=== PATIENT | female | born 2005 | race Caucasian/White ===

== ENCOUNTER 2023-10-19 06:30 | Inpatient (IN) ==
[2023-10-19] MEDS ORDERED: PITOCIN ONE ×2 (06:41→16:23)
[2023-10-19] MEDS ORDERED: D5 1/2 NS 1,000 ML 1,000 ML IV ONE (06:42)
[2023-10-19] MEDS ORDERED: NS 100 ML IV 100 ML ONE ×3 (06:42→16:05)
[2023-10-19] MEDS ORDERED: STADOL INJ IVP PRN (07:03)
[2023-10-19] MEDS ORDERED: AMPICILLIN IV SCH (07:03)
[2023-10-19] MEDS ORDERED: REGLAN INJ 10 MG VIAL IVP PRN ×3 (07:03→18:31)
[2023-10-19] MEDS ORDERED: PITOCIN IVP ONE (07:03)
[2023-10-19] MEDS ORDERED: NS IV SCH (07:03)
[2023-10-19] MEDS: D5 1/2 NS 1,000 ML 1,000 ML IV SCH (07:05)
[2023-10-19] MEDS: AMPICILLIN VIAL 2 GRAM ONE (07:12)
--- NOTE | 2023-10-19 07:27 | DR.OB ---
OB QUICK NOTE Assessment/Plan (1) Active labor at term: Assessment/Plan: L&D 10/19/23 at 7:20am Ampicillin S-No complaint. O-Afebrile,VSS CMC=231 with good LTV, +accel, no decel. CTX=occasional, mild CVX=2cm/50%/-1/VTX AROM with clear fluid. IUPC and FSE placed. A-IUP at 39 0/7 weeks for induction +GBS GERD P-Begin pitocin induction ABX in labor for +GBS Anticipate
[2023-10-19] MEDS: OXYTOCIN 20 UNIT/1,000 ML-NS 20 UNIT/1,000 ML PLAST..BAG IV PRN (07:44)
[2023-10-19] MEDS ORDERED: NUBAIN INJ 200 MG VIAL MULTIDOSE ONE (09:52)
[2023-10-19] MEDS: NUBAIN INJ 20 MG AMP IVP PRN (09:55)
[2023-10-19] MEDS ORDERED: AMPICILLIN VIAL 1 GRAM ONE ×2 (11:23→15:03)
[2023-10-19] MEDS: AMPICILLIN VIAL 1 GRAM 1 G in NS 50 ML IV 50 ML IV SCH (11:26)
--- NOTE | 2023-10-19 12:02 | DR.OB ---
OB QUICK NOTE Assessment/Plan (1) Active labor at term: Assessment/Plan: L&D 10/19/23 at 11:55am Pitocin=18mu/min. Ampicillin S-No complaint except CTX pain. O-Afebrile,VSS OWX=273 with good LTV, +accel, no decel. CTX=q 1 1/2 to 2 min., about 45-55mmHg CVX=3-4cm/50%/-2 A-IUP at 39 0/7 weeks for induction +GBS GERD P-Cont. pitocin induction / ABX in labor Anticipate
[2023-10-19] MEDS: LR 1,000 ML IV 1,000 ML IV ONE ×3 (12:40→17:18)
[2023-10-19] MEDS ORDERED: XYLOCAINE 1 % (PLAIN) ONE (13:11)
[2023-10-19] MEDS: FENTANYL VIAL INJ 100 mcg ONE ×3 (13:51→17:01)
[2023-10-19] MEDS: NAROPIN EPIDURAL 0.2% 100 ML ONE (13:56)
[2023-10-19] MEDS: NS 100 ML IV 100 ML ONE (15:30)
[2023-10-19] MEDS: ZOFRAN INJ 4 MG VIAL ONE ×2 (15:44→16:13)
[2023-10-19] MEDS: ZOFRAN INJ 4 MG VIAL IVP PRN (15:47)
[2023-10-19] MEDS: ANCEF VIAL 1 GRAM ONE (16:05)
--- NOTE | 2023-10-19 16:10 | DR.OB ---
OB QUICK NOTE Assessment/Plan (1) Active labor at term: Assessment/Plan: L&D 10/19/23 at 4:00pm Pitocin=20mu/min. Ampicillin S-No complaint. s/p epidural. O-Afebrile,VSS TZP=843 with minimal variability, occasional late variables and deep variables. CTX=q 1 1/2 to 2 min., about 50-55mmHg CVX=4cm/75%/-1/VTX with caput forming (no change in dilation in over 4 hours) A-IUP at 39 0/7 weeks with failure to dilate P-To C/S
[2023-10-19] MEDS: REGLAN INJ 10 MG VIAL ONE (16:13)
[2023-10-19] MEDS: PEPCID 20 MG VIAL ONE (16:13)
[2023-10-19] MEDS: NOZIN NASAL SANITIZER TP ONE (16:13)
[2023-10-19] MEDS ORDERED: LIDOCAINE 2%-EPI 1:200,000 ONE (16:15)
[2023-10-19] MEDS: DIPRIVAN VIAL 20 ML ONE (16:23)
[2023-10-19] MEDS ORDERED: SUPRANE ONE (16:39)
[2023-10-19] MEDS: VERSED ONE (16:54)
[2023-10-19] MEDS: TORADOL 30 MG VIAL ONE (17:23)
[2023-10-19] MEDS: DILAUDID INJ ONE (17:31)
[2023-10-19] MEDS: OFIRMEV IV 1000 MG VIAL 1,000 MG/100 ML VIAL IV ONE (17:34)
[2023-10-19] MEDS: BRIDION ONE (17:35)
[2023-10-19] MEDS ORDERED: BENADRYL INJ 50 MG VIAL IVP PRN ×2 (18:17→18:31)
[2023-10-19] MEDS ORDERED: ZOFRAN INJ 4 MG VIAL IVP PRN ×2 (18:17→18:31)
[2023-10-19] MEDS ORDERED: BARHEMSYS INJ IVP PRN (18:17)
[2023-10-19] MEDS ORDERED: ADACEL or BOOSTRIX TDaP VACCINE IM ONE (18:31)
[2023-10-19] MEDS ORDERED: NARCAN INJ IVP PRN (18:31)
[2023-10-19] MEDS ORDERED: D5 1/2 NS 1,000 ML 1,000 ML with PITOCIN 20 UNITS IV SCH (19:00)
[2023-10-19] MEDS: TORADOL 30 MG VIAL IVP PRN (20:22)
[2023-10-19] MEDS: TOPROL XL PO SCH (21:21)
[2023-10-20] MEDS: MYLICON TAB 80 MG CHEW PO PRN (00:52)
[2023-10-20 05:06] LABS: HEMATOCRIT 22.4 % (36.0-47.0); HEMOGLOBIN 7.6 g/dL (12.0-16.0)
[2023-10-20] MEDS: ADACEL or BOOSTRIX TDaP VACCINE IM ONE (05:54)
[2023-10-20] MEDS: VSL#3 PROBIOTIC CAP 112.5 B PO SCH (08:48)
[2023-10-20] MEDS: PROTONIX TAB 40 MG PO SCH (08:52)
[2023-10-20] MEDS: MOTRIN TAB 800 MG PO PRN (08:52)
[2023-10-20] MEDS: COLACE CAP 100 MG PO SCH (08:52)
[2023-10-20] MEDS: PRENATAL PLUS PO SCH (08:53)
[2023-10-20] MEDS ORDERED: DERMOPLAST PAIN RELIEF SPRAY ONE (09:05)
[2023-10-20] MEDS: PERCOCET TAB 5/325 MG PO PRN (12:45)
[2023-10-20] MEDS: BACTROBAN TOPICAL OINT TOP SCH (15:02)
[2023-10-21] MEDS: MILK OF MAGNESIA PO PRN (20:23)
[2023-10-22 04:14] VITALS: TEMP 97.8
[2023-10-22 08:58] VITALS: BP 121/59; PULSE 91; O2SAT 99
[2023-10-22 09:09] VITALS: RESP 18
== END 2023-10-22 13:30 | disposition home or self-care (01) | DRG 787 ==
LOC: LD 06:31 → MED/SURG 18:34
PROVIDERS: ADMIT Specialist; ATTEND Specialist